=== PATIENT | male | born 1985 | race Two or more races ===

== ENCOUNTER 2023-01-26 19:28 | Emergency (ER) | payer OTHER ==
[~2023-01-26] VITALS: Ht 177.8 cm; Wt 106.6 kg
[2023-01-26] MEDS ORDERED: COZAAR25 MG PO (19:33)
[2023-01-26 21:13] LABS: HEMATOCRIT 38.7 % (39.0-48.0); HEMOGLOBIN 13.6 g/dL (13-16.00); MEAN CELL VOLUME 87.5 fL (80.0-100.00); MEAN CORPUSCULAR HEMOGLOBIN 30.6 pg (27.00-32.0); PLATELET COUNT 217 K/uL (150-450); RED BLOOD COUNT 4.42 M/uL (4.00-6.00); RED CELL DISTRIBUTION WIDTH 13.7 % (11.5-14.5)
[2023-01-26 21:27] LABS: URINE APPEARANCE Clear; URINE BILIRRUBIN Negative (NEGATIVE); URINE BLOOD Negative; URINE COLOR Yellow; URINE GLUCOSE Negative (NEGATIVE); URINE LEUKOCYTE Negative; URINE NITRATE Negative; URINE PROTEIN Negative (NEGATIVE); URINE UROBILINOGEN 0.2 E.U./dl
[2023-01-26 21:35] LABS: URINE BACTERIA 0 uL (0.0-1933); URINE EPITHELIAL CELLS 0.4 uL (0.0-38.8); URINE RBC 1.7 uL (0.0-20.8); URINE WBC 0.4 uL (0.0-23.2)
[2023-01-26 21:35] LABS: CALCIUM 9.1 mg/dL (8.5-10.1); CREATININE SERUM 1.06 mg/dL (0.70-1.30); GFR 77.78; POTASSIUM 4.33 mEq/L (3.5-5.1)
[2023-01-26] MEDS ORDERED: TOPROL XL25 M1 PO (22:50)
[2023-01-26] MEDS ORDERED: HYZAAR 100-251 EACH PO (22:50)
== END 2023-01-26 22:52 | disposition home or self-care (01) ==
LOC: ER 19:29
PROVIDERS: General Practice
DX: I10 Essential (primary) hypertension (principal)